=== PATIENT | male | born 1980 | race Caucasian/White ===

== ENCOUNTER 2017-04-08 19:40 | Emergency (ER) | payer SELFPAY ==
[~2017-04-08] VITALS: Ht 167.6 cm; Wt 67.0 kg
[~2017-04-08 19:40] MED LIST: TYLE3 PO
[2017-04-08 19:44] VITALS: BP 137/70; PULSE 78; RESP 16; TEMP 97.6; O2SAT 99
--- NOTE | 2017-04-08 22:10 | PD ---
HPI Chief Complaint: Skin Problem Time Seen by Provider: 22:00 Travel History International Travel<30 days: No Contact w/Intl Traveler<30days: No Traveled to known affect area: No History of Present Illness HPI 36-year-old male presents for evaluation of skin infection to the right wrist. He reports that 1 week ago a thorny barnhart poked him several times in the right wrist. He has developed 3 painful skin lesions on the right wrist secondary to this. He is concerned that pieces of the thorns may have broken off underneath the skin but he is uncertain. He has been poking the area himself at home however the symptoms have persisted which prompted evaluation. He reports that he is up-to-date on his tetanus vaccination. Denies IV drug abuse, fevers or chills. No other complaints. PFSH Past Medical History Bipolar Disorder: Yes Diminished Hearing: No Past Surgical History Abdominal Surgery: Yes (MUSCLE REPAIR IN [place]) Social History Alcohol Use: Yes (2-3 WEEK) Tobacco Use: Yes (1/2 PPD) Substance Use: Yes Allergies-Medications (Allergen,Severity, Reaction): Coded Allergies: amoxicillin (Unverified Allergy, Intermediate, 04/08/17) penicillin G (Unverified Allergy, Intermediate, 04/08/17) Reported Meds & Prescriptions Reported Meds & Active Scripts Active Bactrim DS (Sulfamethoxazole-Trimethoprim) 800-160 Mg Tab 1 Tab PO BID Doxycycline Hyclate 100 Mg Cap 100 Mg PO BID Tylenol #3 (Acetaminophen/Codeine Phosphate) Acetaminophen 300/30 Codeine Tab 1 Tab PO Q6H PRN FOR PAIN Review of Systems Except as stated in HPI: all other systems reviewed are Neg Physical Exam Narrative GENERAL: Well-developed well-nourished male in no acute distress SKIN: Warm and dry. 3 small abscesses, excoriated, noted to the right wrist. Tender to palpation. No palpable foreign bodies. CARDIOVASCULAR: Regular rate and rhythm. No murmur appreciated. RESPIRATORY: No accessory muscle use. Clear to auscultation. Breath sounds equal bilaterally. GASTROINTESTINAL: Abdomen soft, non-tender, nondistended. Hepatic and splenic margins not palpable. MUSCULOSKELETAL: No obvious deformities. Data Data Last Documented VS Vital Signs Date Time Temp Pulse Resp B/P Pulse Ox O2 Delivery O2 Flow Rate FiO2 04/08/17 19:44 97.6 78 16 137/70 99 Room Air Orders Wrist, Complete ([id number]) (04/08/17 ) Lidocaine Pf 1% Inj (Xylocaine-Mpf 1% In (04/08/17 22:15) Doxycycline (Vibramycin) (04/08/17 23:15) Sulfamet-Trimeth Ds 800-160 Mg (Bactrim (04/08/17 23:15) Wound Culture And Gram Stain (04/08/17 23:28) MDM Medical Decision Making Medical Screen Exam Complete: Yes Emergency Medical Condition: Yes Medical Record Reviewed: Yes Differential Diagnosis Abscess, foreign body, cellulitis Narrative Course The patient has 3 small abscesses right wrist secondary to puncture wounds from a thorn. At this point in time the plan is to perform incision and drainage in each of these wounds. A wound culture will be performed. X-ray imaging of the wrist reveals possible radiopaque foreign bodies. Incision and drainage was performed and each of the wounds was explored using blunt dissection but there was no evidence of foreign body that was able to be removed. He will be discharged with doxycycline and Bactrim. Recommended outpatient follow-up with hand surgery. Procedures Procedure Narrative INCISION AND DRAINAGE OF ABSCESS: The area was prepped and was sterilely draped. A subcutaneous wheal of 1% Xylocaine with a total number 8 mL was used to anesthetize the area. The area was properly anesthetized. A number 11 scalpel was used to make a [1 -cm incision across each of the 3 abscesses. Cultures were obtained. The abscess was drained an irrigated with normal saline. Diagnosis Primary Impression: Abscess of right arm Referrals: Bill Rolle MD Additional Instructions: Follow-up with a hand surgeon such as Dr. Rolle in the next week, call to make an appointment. Wash the wounds daily with soap and water and apply antibiotic cream and clean bandages. Take antibiotics as prescribed. Return for any emergent medical conditions. Med/Other Pt SpecificInfo: Prescription(s) given, Wound Care Scripts Sulfamethoxazole-Trimethoprim (Bactrim DS)800-160 Mg Tab1 Tab PO BID #20 TAB Ref 0 Prov:Roddy Whitmore MD 04/08/17 Doxycycline Hyclate 100 Mg Pog219 Mg PO BID #20 CAP Ref 0 Prov:Roddy Whitmore MD 04/08/17 Disposition: 01 DISCHARGE HOME Condition: Stable Saeed Frye Apr 08, 2017 22:10
[2017-04-08] MEDS ORDERED: LIDOCAINE HCL 1% PF 30 ML VIAL INFIL ONE (22:15)
--- NOTE | 2017-04-08 22:38 | RADRPT ---
EXAM DATE/TIME: 04/08/2017 22:29 [facility] COMPARISON: No previous studies available for comparison. INDICATIONS : Right wrist pain. Possible infection. Patient got arm stuck in a thorn barnhart six days ago. Blisters on wrist since then. MEDICAL HISTORY : None. SURGICAL HISTORY : None. ENCOUNTER: Initial ACUITY: 4 - 6 days PAIN SCORE: 5/10 LOCATION: Right wrist. FINDINGS: No definite fractures, or dislocations are identified. No definite lytic or sclerotic lesion is seen . There is slight soft shoe thickening in the dorsum of the patient's forearm and there are curviline ar radiopaque densities possibly radiopaque foreign bodies 2 separate areas. CONCLUSION: Possible radiopaque foreign bodies. Rachel Guevara MD on April 08, 2017 at 22:35 Board Certified Radiologist. This report was verified electronically.
[2017-04-08] MEDS ORDERED: SULFAMETHOXAZOLE-TRIMETHOPRIM DS 800-160 MG TAB PO ONE (23:15)
[2017-04-08] MEDS ORDERED: DOXYCYCLINE HYCLATE 100 MG CAP PO ONE (23:15)
[2017-04-08] MEDS ORDERED: DOXY100C PO (23:16)
[2017-04-08] MEDS ORDERED: BACT800T5 PO (23:16)
== END 2017-04-08 23:46 | disposition home or self-care (01) ==
LOC: NEPD 19:40
DX: L02.413 Cutaneous abscess of right upper limb (principal); B95.62 Methicillin resistant Staphylococcus aureus infection as the cause of diseases classified elsewhere; F17.200 Nicotine dependence, unspecified, uncomplicated; Z86.59 Personal history of other mental and behavioral disorders; W60.XXXA Contact with nonvenomous plant thorns and spines and sharp leaves, initial encounter
CPT/HCPCS: 10060; 73110; 86403; 87070; 87186; 87205